=== PATIENT | female | born 1995 | race Caucasian/White ===

== ENCOUNTER 2017-05-07 15:15 | Emergency (ER) | payer SELFPAY ==
[2017-05-07 15:53] VITALS: BP 105/53
--- NOTE | 2017-05-07 16:31 | ER Document Report ---
HPI - HPI Patient complains to provider of: sore throat Pain Level: 2 Context: Patient is a 21-year-old healthy female complaining of sore throat 2 days. Patient has positive strep exposure with 5 people positive for strep at work. Patient has pain with swallowing. No fever. No headache. No abdominal pain. No rash. No cough or postnasal drip Exacerbated by: Denies, Food Relieved by: Denies Similar symptoms previously: No Recently seen / treated by doctor: No - ROS Systems Reviewed and Negative: Yes All other systems reviewed and negative - EENT EENT: REPORTS: Sore Throat Past Medical History - General Information source: Patient - Social History Smoking Status: Current Every Day Smoker Frequency of alcohol use: Rare Drug Abuse: None Family History: Reviewed & Not Pertinent Patient has suicidal ideation: No Patient has homicidal ideation: No - Medical History Medical History: Negative Renal/ Medical History: Denies: Hx Peritoneal Dialysis Vertical Provider Document - CONSTITUTIONAL Agree With Documented VS: Yes Exam Limitations: No Limitations General Appearance: WD/WN, No Apparent Distress - INFECTION CONTROL TRAVEL OUTSIDE OF THE [place] IN LAST 30 DAYS: No - HEENT HEENT: Atraumatic, Pharyngeal Tenderness, Pharyngeal Erythema. negative: Pharyngeal Exudate Notes: No trismus, no muffled voice. No difficulty talking or swallowing - NECK Neck: Normal Inspection, Supple - RESPIRATORY Respiratory: Breath Sounds Normal, No Respiratory Distress - MUSCULOSKELETAL/EXTREMETIES Musculoskeletal/Extremeties: MAEW, FROM, Non-Tender - NEURO Level of Consciousness: Awake, Alert, Appropriate - DERM Integumentary: Warm, Dry, No Rash Course - Re-evaluation Re-evalutation: 05/07/17 16:32 History and physical are consistent with an uncomplicated pharyngitis. With the positive strep contact, I will treat with a short course of antibiotics. There are no signs or symptoms of peritonsillar abscess, Leander's angina, sepsis or dehydration. No airway compromise. Patient is agreeable with plan and stable for discharge - Vital Signs Vital signs: Temp Pulse Resp BP Pulse Ox 98.4 F 81 14 105/53 L 97 05/07/17 15:50 05/07/17 15:50 05/07/17 15:50 05/07/17 15:50 05/07/17 15:50 Discharge - Discharge Clinical Impression: Sore throat Condition: Stable Disposition: HOME, SELF-CARE Instructions: Sore Throat ([facility]), Penicillin V K ([facility]) Additional Instructions: I am treating you for strep throat Take all antibiotics as prescribed Recommend a new toothbrush in 48 hours Lozenges and salt water gargles for comfort Return to ER for any difficulty swallowing Prescriptions: Penicillin V Potassium [Penicillin Vk 500 mg Tablet] 500 mg PO BID #20 tablet
== END 2017-05-07 17:00 | disposition home or self-care (01) ==
LOC: ER 15:15
DX: J02.9 Acute pharyngitis, unspecified (principal); R13.10 Dysphagia, unspecified; F17.200 Nicotine dependence, unspecified, uncomplicated
CPT/HCPCS: 99282

== ENCOUNTER 2017-11-06 14:34 | Emergency (ER) | payer SELFPAY ==
--- NOTE | 2017-11-06 15:28 | ER Document Report ---
ED Medical Screen (RME) - General Chief Complaint: Breast Problem Stated Complaint: BREAST PROBLEM Time Seen by Provider: 11/06/17 15:27 Notes: 22 years old female presents today with breast, nipple discharge with redness around it, due to piercing of the nipples 2-3 days ago. No fever chills or other constitutional symptoms Could not examine her TRAVEL OUTSIDE OF THE [place] IN LAST 30 DAYS: No - Related Data Allergies/Adverse Reactions: No Known Allergies Allergy (Verified 11/06/17 14:39) Past Medical History Renal/ Medical History: Denies: Hx Peritoneal Dialysis Physical Exam - Vital signs Vitals: Temp Pulse Resp BP Pulse Ox 98.3 F 60 16 111/61 98 11/06/17 14:50 11/06/17 14:50 11/06/17 14:50 11/06/17 14:50 11/06/17 14:50 Course - Vital Signs Vital signs: Temp Pulse Resp BP Pulse Ox 98.3 F 60 16 111/61 98 11/06/17 14:50 11/06/17 14:50 11/06/17 14:50 11/06/17 14:50 11/06/17 14:50
[2017-11-06 15:59] LABS: ABSOLUTE EOSINOPHILS # (AUTO) 0.1 10^3/uL (0.0-0.6); ABSOLUTE MONOCYTES (AUTO) 0.5 10^3/uL (0.1-1.4); ABSOLUTE NEUT (AUTO) 4.8 10^3/uL (1.7-8.2); BASOPHILS % (AUTO) 0.4 % (0-2); EOSINOPHILS % (AUTO) 1.7 % (0-6); HEMATOCRIT 42.3 % (36.0-47.0); HEMOGLOBIN 14.2 g/dL (12.0-15.5); LYMPHOCYTES % (AUTO) 35.4 % (13-45); MEAN CORPUSCULAR HEMOGLOBIN 28.9 pg (27.0-33.4); MEAN CORPUSCULAR HGB CONC 33.7 g/dL (32.0-36.0); MEAN CORPUSCULAR VOLUME 86 fl (80-97); MONOCYTES % (AUTO) 6.2 % (3-13); PLATELET COUNT 279 10^3/uL (150-450); RED BLOOD COUNT 4.93 10^6/uL (3.72-5.28); RED CELL DISTRIBUTION WIDTH 13.8 % (11.5-14.0); SEGMENTED NEUTROPHILS % (AUTO) 56.3 % (42-78); TOTAL CELLS COUNTED % (AUTO) 100 %; WHITE BLOOD COUNT 8.5 10^3/uL (4.0-10.5)
[2017-11-06 16:11] LABS: APPEARANCE,URINE SLIGHTLY-CLOUDY; BILIRUBIN,URINE NEGATIVE (NEGATIVE); COLOR,URINE YELLOW; GLUCOSE, URINE NEGATIVE (NEGATIVE); KETONES,URINE NEGATIVE (NEGATIVE); LEUKOCYTE ESTERASE,URINE NEGATIVE (NEGATIVE); NITRITE,URINE NEGATIVE (NEGATIVE); PROTEIN,URINE NEGATIVE (NEGATIVE); URINE SPECIFIC GRAVITY 1.023; UROBILINOGEN,URINE NEGATIVE mg/dL (<2.0)
--- NOTE | 2017-11-06 16:40 | ER Document Report ---
ED General - General Mode of Arrival: Ambulatory Information source: Patient TRAVEL OUTSIDE OF THE [place] IN LAST 30 DAYS: No <YASMANI BOBBY - Last Filed: 11/06/17 16:35> <KHUSHBOO RESENDIZ - Last Filed: 11/07/17 00:16> - General Chief Complaint: Breast Problem Stated Complaint: BREAST PROBLEM Time Seen by Provider: 11/06/17 15:27 Notes: 22-year-old female who presents to the emergency department today with complaints of left nipple redness, drainage, swelling, and pain. Patient states she had both nipples pierced approximately 1 week ago. Patient states the pain began about 2 days ago. Patient states she did not have any trauma to the area that she can correlate with her pain beginning. Patient states the only thing that she can think of is that she showered just shortly after the water advisory had been lifted in our area. Patient also mentions that her Mirena that was placed 11 months ago "either moved or is no longer working". Patient states her reason for thinking this is that she is having the same symptoms now that she had when she was in the past however they are " 10 times worse now". Patient does not elaborate on these symptoms. (YASMANI BOBBY) - Related Data Allergies/Adverse Reactions: No Known Allergies Allergy (Verified 11/06/17 14:39) Past Medical History - General Information source: Patient - Social History Smoking Status: Current Every Day Smoker Cigarette use (# per day): Yes Chew tobacco use (# tins/day): No Frequency of alcohol use: Rare Drug Abuse: None Lives with: Family Family History: Reviewed & Not Pertinent Patient has suicidal ideation: No Patient has homicidal ideation: No Renal/ Medical History: Denies: Hx Peritoneal Dialysis <YASMANI BOBBY - Last Filed: 11/06/17 16:35> Review of Systems - Review of Systems Constitutional: No symptoms reported EENT: No symptoms reported Cardiovascular: No symptoms reported Respiratory: No symptoms reported Gastrointestinal: No symptoms reported Genitourinary: No symptoms reported Female Genitourinary: See HPI, Other - " symptoms" Musculoskeletal: No symptoms reported Skin: Other - Left nipple pain, redness, discharge Hematologic/Lymphatic: No symptoms reported Neurological/Psychological: No symptoms reported -: Yes All other systems reviewed and negative <YASMANI BOBBY - Last Filed: 11/06/17 16:35> Physical Exam - Vital signs Interpretation: Normal - General General appearance: Appears well, Alert - HEENT Head: Normocephalic, Atraumatic Eyes: Normal Pupils: PERRL - Respiratory Respiratory status: No respiratory distress Chest status: Other - Nipple piercings to bilateral nipples. Right within normal limits. Left with some mild tenderness to palpation but no purulent discharge. No fluctuance. Some very mild streaking redness medially to nipple. No evidence for cellulitis or abscess. Breath sounds: Normal Chest palpation: Normal - Cardiovascular Rhythm: Regular Heart sounds: Normal auscultation Murmur: No - Abdominal Inspection: Normal Distension: No distension Bowel sounds: Normal Tenderness: Nontender Organomegaly: No organomegaly - Back Back: Normal, Nontender - Extremities General upper extremity: Normal inspection, Nontender, Normal color, Normal ROM , Normal temperature General lower extremity: Normal inspection, Nontender, Normal color, Normal ROM , Normal temperature, Normal weight bearing. No: Ignacia's sign - Neurological Neuro grossly intact: Yes Cognition: Normal Orientation: AAOx4 Taye Coma Scale Eye Opening: Spontaneous Taye Coma Scale Verbal: Oriented Taye Coma Scale Motor: Obeys Commands Taye Coma Scale Total: 15 Speech: Normal Motor strength normal: LUE, RUE, LLE, RLE Sensory: Normal - Psychological Associated symptoms: Normal affect, Normal mood - Skin Skin Temperature: Warm Skin Moisture: Dry Skin Color: Normal <KHUSHBOO RESENDIZ - Last Filed: 11/07/17 00:16> - Vital signs Vitals: Temp Pulse Resp BP Pulse Ox 98.3 F 60 16 111/61 98 11/06/17 14:50 11/06/17 14:50 11/06/17 14:50 11/06/17 14:50 11/06/17 14:50 Course - Laboratory Result Diagrams: 11/06/17 14:50 <YASMANI BOBBY - Last Filed: 11/06/17 16:35> - Laboratory Result Diagrams: 11/06/17 14:50 <KHUSHBOO RESENDIZ - Last Filed: 11/07/17 00:16> - Re-evaluation Re-evalutation: Patient had recent nipple piercings. Concerned about left one that is painful. Mild streaking redness earlier. Minimal at present. No evidence for abscess. No evidence for abscess lymph node. Possible early infection. Nothing to drain. Recommend the patient take piercing out and start antibiotics until possible early infection is cleared. Patient did not want me to remove piercing but states that she will do it at home in the shower so it is less painful. Appears well. AVSS. Blood work within normal limits. Stable for discharge. Return immediately if worsening or concerning symptoms. Understands agrees with plan (KHUSHBOO RESENDIZ) - Vital Signs Vital signs: Temp Pulse Resp BP Pulse Ox 97.4 F 55 L 16 100/57 L 100 11/06/17 17:04 11/06/17 17:04 11/06/17 14:50 11/06/17 17:04 11/06/17 17:04 Discharge <YASMANI BOBBY - Last Filed: 11/06/17 16:35> <KHUSHBOO RESENDIZ - Last Filed: 11/07/17 00:16> - Discharge Clinical Impression: Possible breast infection, Evaluation of piercing Condition: Stable Disposition: HOME, SELF-CARE Instructions: Cellulitis ([facility]) Additional Instructions: Please remove the piercing as there is some concern for early infection. There does not appear to be an abscess at this time. Please return for wound recheck in 24-48 hours if you have further concerns. Please follow-up with a chin strap maker regarding your concerns about Mirena. If you cannot get into the one that placed it, the number for women's health has been provided. Stay out of the sun when taking doxycycline. Prescriptions: Doxycycline Hyclate 100 mg PO BID #20 capsule Scribe Attestation: 11/07/17 00:16 I personally performed the services described in the documentation, reviewed and edited the documentation which was dictated to the scribe in my presence, and it accurately records my words and actions. (KHUSHBOO RESENDIZ) Scribe Documentation - Scribe Written by Tommy:: Tommy Carbajal, 11/06/2017 1640 acting as scribe for :: Hilary <YASMANI BOBBY - Last Filed: 11/06/17 16:35>
[2017-11-06] MEDS ORDERED: DOXYCYCLINE HYCLATE 100 MG TABLET PO ONE (16:43)
[2017-11-06 17:06] VITALS: BP 100/57
== END 2017-11-06 17:06 | disposition home or self-care (01) ==
LOC: ER 14:34
DX: L53.9 Erythematous condition, unspecified (principal); N64.59 Other signs and symptoms in breast; F17.210 Nicotine dependence, cigarettes, uncomplicated; Z97.5 Presence of (intrauterine) contraceptive device
CPT/HCPCS: 36415; 81001; 84703; 85025; 87040; 99283

== ENCOUNTER 2018-03-21 19:27 | Emergency (ER) | payer SELFPAY ==
[2018-03-21 19:40] VITALS: BP 118/70
--- NOTE | 2018-03-21 19:53 | ER Document Report ---
HPI - HPI Time Seen by Provider: 03/21/18 19:42 Pain Level: 4 Notes: Patient is a 22-year-old female who presents to the emergency department complaining of left foot pain status post injury yesterday when she was at work. 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 Patient states that the pain is worsened with ambulation, but is there at rest as well. The pain does not radiate. She has not noticed any swelling or bruising. Denies drug allergies. Denies any headache, fever, head injury, neck pain, changes in vision/speech/mentation/hearing, URI, sore throat, chest pain, palpitations, syncope, cough, shortness of breath, wheeze, dyspnea, abdominal pain, nausea/vomiting/diarrhea, urinary retention, dysuria, hematuria, loss of control of bowel or bladder, numbness/tingling, saddle anesthesia, muscle paralysis/weakness, or rash. - ROS Systems Reviewed and Negative: Yes All other systems reviewed and negative - REPRODUCTIVE LMP: BIRTHCONTORL Reproductive: DENIES: : Past Medical History - Social History Smoking Status: Never Smoker Family History: Reviewed & Not Pertinent Renal/ Medical History: Denies: Hx Peritoneal Dialysis Vertical Provider Document - CONSTITUTIONAL Agree With Documented VS: Yes Notes: PHYSICAL EXAMINATION: GENERAL: Well-appearing, well-nourished and in no acute distress. LUNGS: Breath sounds clear to auscultation bilaterally and equal. No wheezes rales or rhonchi. HEART: Regular rate and rhythm without murmurs, rubs, gallops. Musculoskeletal: Lt foot/ankle: FROM to passive/active. Strength 4+/5 due to pain. N/V intact distal. + tenderness to the dorsal foot and area of the ATFL. No bony tenderness of the foot. Achilles intact. Extremities: No cyanosis, clubbing, or edema b/l. Peripheral pulses 2+. Capillary refill less than 3 seconds. NEUROLOGICAL: Normal speech, limping gait. Normal sensory, motor exams PSYCH: Normal mood, normal affect. SKIN: Warm, Dry, normal turgor, no rashes or lesions noted. - INFECTION CONTROL TRAVEL OUTSIDE OF THE [place] IN LAST 30 DAYS: No Course - Re-evaluation Re-evalutation: 03/21/18 21:00 Patient is an afebrile, well-hydrated, 22-year-old female who presents to the ED with nondisplaced fractures to the left second, third, and fourth metatarsals. Vitals are acceptable without any significant tachycardia, tachypnea, or hypoxia . PE is otherwise unremarkable for any neurovascular compromise, obvious tendon/ligament rupture, open fracture, septic joint. See XR result. Splint applied today and crutches provided. Patient declined any Tylenol or Motrin at this time. Patient is nontoxic-appearing. No other labs or imaging warranted at this time based on H&P. Conservative measures otherwise for symptoms. Recheck with your PCM in 3-5 days. Call orthopedics tomorrow to schedule an appointment for further evaluation and management. Return to the ED with any worsening/concerning symptoms otherwise as reviewed in discharge. Patient is in agreement - Vital Signs Vital signs: Temp Pulse Resp BP Pulse Ox 98.0 F 80 19 118/70 100 03/21/18 19:38 03/21/18 19:38 03/21/18 19:38 03/21/18 19:38 03/21/18 19:38 Procedures - Immobilization Left Foot Time completed: 21:00 Pre-Proc Neuro Vasc Exam: Normal Immobilizer type: Posterior ankle Performed by: PCT Post-Proc Neuro Vasc Exam: Normal, Unchanged from pre-exam Discharge - Discharge Clinical Impression: Metatarsal fracture Qualifiers: Encounter type: initial encounter Metatarsal bone: second Fracture type: closed Fracture alignment: nondisplaced Laterality: left Qualified Code(s): S92.325A - Nondisplaced fracture of second metatarsal bone, left foot, initial encounter for closed fracture Nondisplaced fracture of metatarsal bone of left foot Qualifiers: Encounter type: initial encounter Metatarsal bone: third Fracture type: closed Qualified Code(s): S92.335A - Nondisplaced fracture of third metatarsal bone, left foot, initial encounter for closed fracture Condition: Stable Disposition: HOME, SELF-CARE Instructions: Foot Fracture ([facility]), Splint Precautions ([facility]) Additional Instructions: Rest, Ice, Compression, Elevation Use crutches/splint as directed Tylenol/ibuprofen as needed F/u with your PCP in 3-5 days for a recheck Call orthopedics tomorrow to schedule an appointment for further evaluation and management Return to the ED with any worsening symptoms and/or development of fever, headache, chest pain, palpitations, syncope, shortness of breath, trouble breathing, abdominal pain, n/v/d, muscle weakness/paralysis, numbness/tingling, swelling, redness, or other worsening symptoms that are concerning to you. Referrals: [facility] [Provider Group] - Follow up in 3-5 days
--- NOTE | 2018-03-21 20:20 | RADIOLOGY REPORT (SQ) ---
EXAM DESCRIPTION: XR FOOT 3 OR MORE VIEWS COMPLETED DATE/TME: 03/21/2018 19:42 CLINICAL HISTORY: 22 years, Female, left foot pain COMPARISON: None. NUMBER OF VIEWS: 3 TECHNIQUE: 3 views left foot LIMITATIONS: None. FINDINGS: Subtle lucencies associated with the second, third, and fourth metatarsals, consistent with nondisplaced fractures. No other fractures. No dislocation. Minor soft tissue swelling. IMPRESSION: Nondisplaced fractures of the second, third, and fourth metatarsals. copyright 2010 [employer]- All Rights Reserved
[2018-03-21] MEDS ORDERED: HYDROCODONE/ACETAMINOPHEN 5-325 MG (6 TAB/ER DISP) PO PRN (20:52)
== END 2018-03-21 21:37 | disposition home or self-care (01) ==
LOC: ER 19:27
PROC: 2W3RX1Z Immobilization of Left Lower Leg using Splint (ICD-10-PCS; principal; 2018-03-21)
DX: S92.335A Nondisplaced fracture of third metatarsal bone, left foot, initial encounter for closed fracture (principal); S92.325A Nondisplaced fracture of second metatarsal bone, left foot, initial encounter for closed fracture; M79.672 Pain in left foot; W01.0XXA Fall on same level from slipping, tripping and stumbling without subsequent striking against object, initial encounter
CPT/HCPCS: 99283

== ENCOUNTER 2018-10-17 14:00 | Emergency (ER) | payer SELFPAY ==
--- NOTE | 2018-10-17 16:52 | ER Document Report ---
ED Medical Screen (RME) - General Chief Complaint: Vaginal Bleeding Stated Complaint: VAGINAL BLEEDING Time Seen by Provider: 10/17/18 16:44 Notes: 23-year-old female presents the emergency department for abnormal vaginal bleeding. Patient states that she has been bleeding intermittently for the past 3 weeks. Patient has a Mirena in place and she states since she has had it in for the past 2 years she had stopped having periods. Patient denies any pelvic pain, abdominal pain, nausea/vomiting/diarrhea/constipation, fevers or chills, denies urinary frequency/urgency/dysuria, denies any other abnormal vaginal discharge. EXAM: Well-appearing in no acute distress, bowel sounds heard, no tenderness to palpation in abdomen, no distention I have greeted and performed a rapid initial assessment of this patient. A comprehensive ED assessment and evaluation of the patient, analysis of test results and completion of medical decision making process will be conducted by an additional ED providers. TRAVEL OUTSIDE OF THE [place] IN LAST 30 DAYS: No - Related Data Allergies/Adverse Reactions: No Known Allergies Allergy (Verified 11/06/17 14:39) Past Medical History Renal/ Medical History: Denies: Hx Peritoneal Dialysis Physical Exam - Vital signs Vitals: Temp Pulse Resp BP Pulse Ox 98.6 F 84 18 110/64 94 10/17/18 14:16 10/17/18 14:16 10/17/18 14:16 10/17/18 14:16 10/17/18 14:16 Course - Vital Signs Vital signs: Temp Pulse Resp BP Pulse Ox 98.6 F 84 18 110/64 94 10/17/18 14:16 10/17/18 14:16 10/17/18 14:16 10/17/18 14:16 10/17/18 14:16
[2018-10-17 17:57] LABS: ABSOLUTE EOSINOPHILS # (AUTO) 0.2 10^3/uL (0.0-0.6); ABSOLUTE LYMPHOCYTES (AUTO) 3.2 10^3/uL (0.5-4.7); ABSOLUTE MONOCYTES (AUTO) 0.5 10^3/uL (0.1-1.4); ABSOLUTE NEUT (AUTO) 5.1 10^3/uL (1.7-8.2); BASOPHILS % (AUTO) 0.3 % (0-2); EOSINOPHILS % (AUTO) 2.5 % (0-6); HEMATOCRIT 41.9 % (36.0-47.0); LYMPHOCYTES % (AUTO) 34.8 % (13-45); MEAN CORPUSCULAR HGB CONC 33.4 g/dL (32.0-36.0); MEAN CORPUSCULAR VOLUME 87 fl (80-97); MONOCYTES % (AUTO) 6.1 % (3-13); PLATELET COUNT 273 10^3/uL (150-450); RED BLOOD COUNT 4.82 10^6/uL (3.72-5.28); RED CELL DISTRIBUTION WIDTH 13.1 % (11.5-14.0); SEGMENTED NEUTROPHILS % (AUTO) 56.3 % (42-78); TOTAL CELLS COUNTED % (AUTO) 100 %; WHITE BLOOD COUNT 9.1 10^3/uL (4.0-10.5)
[2018-10-17 18:03] LABS: ALBUMIN 4.7 g/dL (3.5-5.0); ALKALINE PHOSPHATASE 55 U/L (38-126); ANION GAP 9 (5-19); ASPARTATE AMINO TRANSFERASE 23 U/L (14-36); BILIRUBIN,DIRECT 0.2 mg/dL (0.0-0.4); BILIRUBIN,TOTAL 0.3 mg/dL (0.2-1.3); BLOOD UREA NITROGEN 15 mg/dL (7-20); CALCIUM 9.7 mg/dL (8.4-10.2); CARBON DIOXIDE 29 mmol/L (22-30); CHLORIDE 103 mmol/L (98-107); GLUCOSE 84 mg/dL (75-110); POTASSIUM 4.6 mmol/L (3.6-5.0); TOTAL PROTEIN 7.6 g/dL (6.3-8.2)
[2018-10-17 18:15] LABS: APPEARANCE,URINE CLEAR; BILIRUBIN,URINE NEGATIVE (NEGATIVE); COLOR,URINE YELLOW; GLUCOSE, URINE NEGATIVE (NEGATIVE); KETONES,URINE TRACE mg/dL (NEGATIVE); LEUKOCYTE ESTERASE,URINE TRACE (NEGATIVE); NITRITE,URINE NEGATIVE (NEGATIVE); PROTEIN,URINE NEGATIVE (NEGATIVE); URINE SPECIFIC GRAVITY 1.026; UROBILINOGEN,URINE NEGATIVE mg/dL (<2.0)
--- NOTE | 2018-10-17 19:45 | ER Document Report ---
ED General - General Chief Complaint: Vaginal Bleeding Stated Complaint: VAGINAL BLEEDING Time Seen by Provider: 10/17/18 16:44 Primary Care Provider: JANA OSMAN MD [ACTIVE STAFF] - Follow up in 3-5 days TRAVEL OUTSIDE OF THE [place] IN LAST 30 DAYS: No - HPI Notes: 23-year-old female to the emergency department with complaints of vaginal bleeding for the past 3 weeks. She states that she has had constant bleeding every day. She states that she goes to maybe 1 or 2 tampons a day. She denies any chest pain, shortness of breath, lightheadedness or passing out. States th at she has had a Mirena for 2 years and for the entire time that she had the IUD that she has not had a Menstrual cycle. She denies any urinary complaints flank pain vaginal discharge concern for STD - Related Data Allergies/Adverse Reactions: No Known Allergies Allergy (Verified 11/06/17 14:39) Past Medical History - General Information source: Patient Last Menstrual Period: now - Social History Smoking Status: Current Every Day Smoker Chew tobacco use (# tins/day): No Frequency of alcohol use: Occasional Drug Abuse: None Family History: Reviewed & Not Pertinent Patient has suicidal ideation: No Patient has homicidal ideation: No Renal/ Medical History: Denies: Hx Peritoneal Dialysis Review of Systems - Review of Systems Constitutional: denies: Chills, Fever EENT: No symptoms reported Cardiovascular: denies: Chest pain, Palpitations, Heart racing, Dyspnea, Syncope, Dizziness, Lightheaded Respiratory: denies: Cough, Short of breath Gastrointestinal: denies: Abdominal pain, Diarrhea, Nausea, Vomiting Genitourinary: denies: Burning, Dysuria, Discharge, Frequency, Flank pain, Hematuria, Incontinence Female Genitourinary: Heavy/abnormal periods, Vaginal bleeding Musculoskeletal: No symptoms reported Skin: No symptoms reported Hematologic/Lymphatic: No symptoms reported Neurological/Psychological: No symptoms reported -: Yes All other systems reviewed and negative Physical Exam - Vital signs Vitals: Temp Pulse Resp BP Pulse Ox 98.6 F 84 18 110/64 94 10/17/18 14:16 10/17/18 14:16 10/17/18 14:16 10/17/18 14:16 10/17/18 14:16 Interpretation: Normal - General General appearance: Appears well, Alert - HEENT Head: Normocephalic, Atraumatic Eyes: Normal Pupils: PERRL - Respiratory Respiratory status: No respiratory distress Chest status: Nontender Breath sounds: Normal Chest palpation: Normal - Cardiovascular Rhythm: Regular Heart sounds: Normal auscultation Murmur: No - Abdominal Inspection: Normal Distension: No distension Bowel sounds: Normal Tenderness: Nontender Organomegaly: No organomegaly - Back Back: Normal, Nontender. No: CVA tenderness - Psychological Associated symptoms: Normal affect, Normal mood - Skin Skin Temperature: Warm Skin Moisture: Dry Skin Color: Normal Course - Re-evaluation Re-evalutation: 10/17/18 Transvaginal US 10/17/18 19:01 IMPRESSION: No acute findings. Impression: Dysfunctional uterine bleeding. Patient's H&H is stable and she is not anemic. Her ultrasound is reassuring. Mild leukocytosis esterase and positive white blood cell count in urine. We will culture the urine and put her on 3 days worth of Cipro. I have encouraged her to follow-up with [facility] [employer] and given her information for one. She agrees with the plan will discharge home. - Vital Signs Vital signs: Temp Pulse Resp BP Pulse Ox 98.6 F 84 18 110/64 94 10/17/18 14:16 10/17/18 14:16 10/17/18 14:16 10/17/18 14:16 10/17/18 14:16 - Laboratory Result Diagrams: 10/17/18 17:25 10/17/18 17:25 Laboratory results interpreted by me: 10/17/18 18:04 Urine Ketones TRACE H Ur Leukocyte Esterase TRACE H Urine Ascorbic Acid 40 H - Diagnostic Test Radiology reviewed: Image reviewed, Reports reviewed Discharge - Discharge Clinical Impression: Dysfunctional uterine bleeding, UTI (urinary tract infection) Condition: Stable Disposition: HOME, SELF-CARE Instructions: Dysfunctional Uterine Bleeding ([facility]) Additional Instructions: FOLLOW UP WITH OBGYN LISTED BELOW. RETURN IF WORSENING SYMPTOMS SUCH HEAVY VAGINAL BLEEDING, PASSING OUT, OR ANY OTHER COMPLAINTS. PUSH FLUIDS. Prescriptions: Ciprofloxacin HCl [Cipro 500 mg Tablet] 500 mg PO BID #6 tablet Referrals: JANA OSMAN MD [ACTIVE STAFF] - Follow up in 3-5 days
--- NOTE | 2018-10-17 19:52 | RADIOLOGY REPORT (SQ) ---
EXAM DESCRIPTION: U/S NON OB PEL TV W/DOPPLER COMPLETED DATE/TIME: 10/17/2018 7:13 pm REASON FOR STUDY: abd vag bleeding COMPARISON: None. TECHNIQUE: Grayscale images acquired of the pelvis via transvaginal approach and recorded on PACS. A dditional selected color Doppler and spectral images recorded. LIMITATIONS: None. FINDINGS: UTERUS: Measures 7.8 x 4.4 x 5.3 cm. No focal myometrial mass was noted. ENDOMETRIAL STRIPE: The endometrium measures 3.9 mm in double wall thickness. An intrauterine device is noted at the endometrial canal. CERVIX: Measures 2.8 cm in length. RIGHT OVARY AND DOPPLER: The right ovary measures 3.4 x 1.8 x 2.5 cm. Flow by Doppler was shown to t he right ovary. LEFT OVARY AND DOPPLER: The left ovary measures 4.3 x 2.2 x 1.8 cm. Flow by Doppler was shown to the left ovary. FREE FLUID: None noted. IMPRESSION: No acute findings. TECHNICAL DOCUMENTATION: JOB ID: [id number] [employer]- All Rights Reserved Rev-06/27 Reading location - IP/workstation name: [email or web address]
[2018-10-17 21:25] VITALS: BP 120/79
== END 2018-10-17 21:25 | disposition home or self-care (01) ==
LOC: ER 14:00
DX: N93.8 Other specified abnormal uterine and vaginal bleeding (principal); N39.0 Urinary tract infection, site not specified; Z97.5 Presence of (intrauterine) contraceptive device; F17.200 Nicotine dependence, unspecified, uncomplicated
CPT/HCPCS: 36415; 76830; 80053; 81001; 81025; 85025; 87086; 87088; 87186; 93976; 99284

== ENCOUNTER 2019-03-24 11:17 | Emergency (ER) | payer SELFPAY ==
--- NOTE | 2019-03-24 13:01 | ER Document Report ---
HPI - HPI Patient complains to provider of: left lower back pain Time Seen by Provider: 03/24/19 12:51 Onset: Other - 3 weeks Quality of pain: Achy Pain Level: 3 Context: 23-year-old female presents emergency department with complaints of left lower back and left-sided flank pain. Denies pain with void. Denies fever vomiting diarrhea. Reports she has had the pain for the past 3 weeks. She denies recent heavy lifting or trauma. She reports she is had this pain since she had an epidural with her child. She reports it comes and goes she is usually able to take care of it with a heating pad and ibuprofen. This time the pain is not going away. She reports worse pain when first waking up and hurts more when she tries to lift her daughter. Associated Symptoms: None Exacerbated by: Movement Relieved by: Denies Similar symptoms previously: Yes Recently seen / treated by doctor: No - REPRODUCTIVE Reproductive: DENIES: : Past Medical History - General Information source: Patient Last Menstrual Period: iud - Social History Smoking Status: Current Every Day Smoker Chew tobacco use (# tins/day): No Frequency of alcohol use: Rare Drug Abuse: None Occupation: [employer] Lives with: Family Family History: Reviewed & Not Pertinent Patient has suicidal ideation: No Patient has homicidal ideation: No - Medical History Medical History: Negative Renal/ Medical History: Denies: Hx Peritoneal Dialysis Surgical Hx: Negative Vertical Provider Document - CONSTITUTIONAL Agree With Documented VS: Yes Exam Limitations: No Limitations General Appearance: WD/WN, No Apparent Distress - INFECTION CONTROL TRAVEL OUTSIDE OF THE [place] IN LAST 30 DAYS: No - HEENT HEENT: Atraumatic, Normal ENT Exam, Normocephalic, PERRLA. negative: Conjuctival Injection, Pharyngeal Erythema, Tympanic Membrane Bulging - NECK Neck: Normal Inspection, Supple. negative: Lymphadenopathy-Left, Lymphadenopathy-Right - RESPIRATORY Respiratory: Breath Sounds Normal, No Respiratory Distress - CARDIOVASCULAR Cardiovascular: Regular Rate, Regular Rhythm - GI/ABDOMEN Gastrointestinal: Abdomen Soft, Abdomen Non-Tender - BACK Back: Normal Inspection - No obvious deformity. Patient complains of left flank and lower back pain. Good distal movement and sensation no weakness denies vertebral tenderness no erythema no swelling no warmth - MUSCULOSKELETAL/EXTREMETIES Musculoskeletal/Extremeties: MAEW, FROM, Non-Tender - NEURO Level of Consciousness: Awake, Alert, Appropriate Motor/Sensory: No Motor Deficit - DERM Integumentary: Warm, Dry, No Rash Course - Re-evaluation Re-evalutation: 03/24/19 15:55 Laboratory 03/24/19 13:05 Urine Color YELLOW Urine Appearance SLIGHTLY-CLOUDY Urine pH 6.0 Ur Specific [place] 1.024 Urine Protein NEGATIVE Urine Glucose (UA) NEGATIVE Urine Ketones NEGATIVE Urine Blood NEGATIVE Urine Nitrite NEGATIVE Urine Bilirubin NEGATIVE Urine Urobilinogen NEGATIVE Ur Leukocyte Esterase TRACE H Urine WBC (Auto) 3 Urine RBC (Auto) 2 U Hyaline Cast (Auto) 1 Urine Bacteria (Auto) TRACE Squamous Epi Cells Auto 7 Urine Mucus (Auto) OCC Urine Ascorbic Acid NEGATIVE Urine HCG, Qual NEGATIVE UA negative for infection. Patient instructed on this instructed on Flexeril Motrin for the pain. Patient instructed follow-up with her primary care or return here for concerns. She verbalized understanding to all instructions. - Vital Signs Vital signs: Temp Pulse Resp BP Pulse Ox 98.8 F 64 18 116/47 L 99 03/24/19 12:29 03/24/19 12:29 03/24/19 12:29 03/24/19 12:29 03/24/19 12:29 Discharge - Discharge Clinical Impression: Left lower back pain Condition: Stable Disposition: HOME, SELF-CARE Instructions: Ibuprofen (General) ([facility]), Ice Packs ([facility]), Low Back Pain ([facility]), Muscle Relaxers ([facility]) Additional Instructions: *You have been evaluated for left side low back pain *Take medication as prescribed *Rest/Ice packs as indicated, 20 minutes on 20 minutes off *Lift with your legs *Avoid heavy lifting *Follow up with a primary care provider within 1 week for recheck *Return to ED for worsening condition, changes, needs Prescriptions: Cyclobenzaprine HCl [Flexeril 10 Mg Tablet] 5 mg PO TID #15 tablet Ibuprofen [Motrin 800 mg Tablet] 800 mg PO TID #20 tablet Forms: Return to Work
[2019-03-24 13:46] LABS: APPEARANCE,URINE SLIGHTLY-CLOUDY; BILIRUBIN,URINE NEGATIVE (NEGATIVE); COLOR,URINE YELLOW; GLUCOSE, URINE NEGATIVE (NEGATIVE); KETONES,URINE NEGATIVE (NEGATIVE); LEUKOCYTE ESTERASE,URINE TRACE (NEGATIVE); NITRITE,URINE NEGATIVE (NEGATIVE); PROTEIN,URINE NEGATIVE (NEGATIVE); URINE SPECIFIC GRAVITY 1.024; UROBILINOGEN,URINE NEGATIVE mg/dL (<2.0)
[2019-03-24 14:08] VITALS: BP 109/63
== END 2019-03-24 14:10 | disposition home or self-care (01) ==
LOC: ER 11:17
DX: M54.5 Low back pain (principal); F17.200 Nicotine dependence, unspecified, uncomplicated
CPT/HCPCS: 81001; 81025